=== PATIENT | male | born 1955 | race African-American/Black ===

== ENCOUNTER 2019-01-31 05:42 | Inpatient (IN) ==
[2019-01-28 11:19] LABS: Basophils % 0.6 % (0.0-0.8); Eosinophils # 0.1 10*3/uL (0.0-0.87); Eosinophils % 2.2 % (0.00-10.9); Hematocrit 43.7 VOL% (42.0-52.0); Hemoglobin 14.3 GM/DL (14.0-18.0); Lymphocytes # 1.9 10*3/uL (1.4-4.0); Lymphocytes % 38.4 % (21.2-54.2); Mean Corpuscular HGB Conc 32.7 GM/DL (32-36); Mean Corpuscular Volume 82.9 FL (87-102); Mean Platelet Volume 9.4 FL (9.6-12.0); Monocytes % 7.2 % (1.7-12.7); Neutrophils % 51.6 % (38.7-73.9); Platelet Count 229 T/CUMM (130-400); Red Blood Count 5.27 MC/CUMM (3.8-5.5); Red Cell Distribution Width 14.1 % (9.3-17.3)
[2019-01-28 11:48] LABS: Albumin 3.5 G/DL (3.4-5.0); Bilirubin,Total 0.7 MG/DL (0.2-1.0); Osmolality,Calculated 277.4 MOS/KG (273-304); Total Protein 7.7 G/DL (6.4-8.3)
[2019-01-31] MEDS ORDERED: FAMOTIDINE 20 MG/2 ML VIAL IV ONE (06:00)
[2019-01-31] MEDS ORDERED: ACETAMINOPHEN 500 MG TABLET PO ONE (06:00)
[2019-01-31] MEDS ORDERED: DIAZEPAM 5 MG TABLET PO ONE (06:00)
[2019-01-31] MEDS ORDERED: SCOPOLAMINE 1.5 MG PATCH TRANSDERM ONE ×2 (06:00→07:46)
[2019-01-31] MEDS ORDERED: GABAPENTIN 400 MG CAPSULE PO ONE (06:00)
[2019-01-31] MEDS ORDERED: cefTRIAXone 1,000 MG in SYRINGE 1 EACH IV ONE (06:30)
[2019-01-31] MEDS ORDERED: FAMOTIDINE 20 MG TABLET PO ONE (07:42)
[2019-01-31] MEDS ORDERED: ACETAMINOPHEN 500 MG TABLET ONE (07:46)
[2019-01-31] MEDS ORDERED: DIAZEPAM 5 MG TABLET ONE (07:46)
[2019-01-31] MEDS ORDERED: GABAPENTIN 400 MG CAPSULE ONE (07:46)
[2019-01-31] MEDS ORDERED: cefTRIAXone 1,000 MG VIAL ONE (07:46)
[2019-01-31] MEDS ORDERED: BUPIVACAINE 0.5% 50 ML VIAL ONE (08:03)
[2019-01-31] MEDS ORDERED: LIDOCAINE 1% 5 ML VIAL ONE (08:03)
[2019-01-31] MEDS ORDERED: EPINEPHrine 1 MG/ML VIAL ONE (08:04)
[2019-01-31] MEDS ORDERED: DEXAMETHASONE 4 MG/1 ML VIAL ONE ×2 (08:04→14:17)
[2019-01-31] MEDS ORDERED: MIDAZOLAM 2 MG/2 ML VIAL ONE (08:04)
[2019-01-31] MEDS: LACTATED RINGERS 1,000 ML IV SCH ×3 (08:14→14:00)
[2019-01-31] MEDS ORDERED: INDOCYANINE GREEN 25 MG VIAL IV ONE (09:29)
[2019-01-31] MEDS ORDERED: MANNITOL 12.5 GM/50 ML VIAL IV ONE ×2 (09:43→10:48)
[2019-01-31] MEDS ORDERED: PHENYLEPHRINE DRIP 20 MG/250 ML PREMIX IV ONE (10:53)
[2019-01-31] MEDS ORDERED: PROMETHAZINE 25 MG/1 ML VIAL IM PRN (13:42)
[2019-01-31] MEDS ORDERED: HYDROmorphone 2 MG/1 ML VIAL IV PRN ×2 (13:42→14:18)
[2019-01-31] MEDS ORDERED: ONDANSETRON 4 MG/2 ML VIAL IV PRN ×2 (13:42→14:18)
[2019-01-31] MEDS ORDERED: oxyCODONE/ACETAMINOPHEN 5-325 MG TABLET PO PRN (13:45)
[2019-01-31] MEDS ORDERED: DEXTROSE 50% 25 GM/50 ML VIAL IV PRN (13:47)
[2019-01-31] MEDS ORDERED: GLUCAGON 1 MG VIAL IM PRN (13:47)
[2019-01-31] MEDS ORDERED: ONDANSETRON 4 MG/2 ML VIAL ONE (14:17)
[2019-01-31] MEDS ORDERED: GLYCOPYRROLATE 0.4 MG/2 ML VIAL ONE (14:17)
[2019-01-31] MEDS ORDERED: fentaNYL 100 MCG/2 ML VIAL ONE (14:17)
[2019-01-31] MEDS ORDERED: SEVOFLURANE 1 UNIT/15 MINUTE INH ONE (14:17)
[2019-01-31] MEDS ORDERED: PROPOFOL 200 MG/20 ML VIAL IV ONE (14:17)
[2019-01-31] MEDS ORDERED: LIDOCAINE 2% 5 ML VIAL ONE (14:17)
[2019-01-31] MEDS ORDERED: ROCURONIUM 100 MG/10 ML VIAL IV ONE (14:18)
[2019-01-31] MEDS ORDERED: PHENYLEPHRINE 1 MG/10 ML SYRINGE IV ONE (14:18)
[2019-01-31] MEDS ORDERED: NEOSTIGMINE 10 MG/10 ML VIAL ONE (14:18)
[2019-01-31] MEDS ORDERED: LACTATED RINGERS 1,000 ML IV SCH (14:30)
[2019-01-31 14:42] LABS: Apearance,Urine CLEAR (Clear); Bilirubin,Urine Negative (Negative); Blood, Urine Small mg/dL (Negative); Glucose,Urine (UA) 150 mg/dL (Negative); Hyaline Casts,Urine 1 /LPF (0-3); Ketones,Urine Negative (Negative); Mucus,Urine Occasional /LPF (Occasional); Nitrite,Urine Negative (Negative); Protein,Urine Negative; RBC,Urine 1 /HPF (0-4); Urine Color Straw (Yellow); Urine Specific Gravity 1.009 (1.001-1.035); Urine Urobilinogen < 2.0 EU/DL (0.2-1.0); WBC,Urine 1 /HPF (0-6)
[2019-01-31 14:49] LABS: Basophils % 0.1 % (0.0-0.8); Hematocrit 39.4 VOL% (42.0-52.0); Hemoglobin 13.1 GM/DL (14.0-18.0); Immature Granulocytes % 0.8 %; Immature Granulocytes Absolute 0.07 #; Lymphocytes % 11.5 % (21.2-54.2); Mean Corpuscular HGB Conc 33.2 GM/DL (32-36); Mean Corpuscular Volume 83.7 FL (87-102); Mean Platelet Volume 9.8 FL (9.6-12.0); Monocytes % 1.4 % (1.7-12.7); Neutrophils % 86.2 % (38.7-73.9); Platelet Count 206 T/CUMM (130-400); Red Blood Count 4.71 MC/CUMM (3.8-5.5); Red Cell Distribution Width 14.1 % (9.3-17.3); White Blood Count 8.8 T/CUMM (4-12)
[2019-01-31 15:13] LABS: Calcium 8.5 MG/DL (8.5-10.1); Osmolality,Calculated 283.4 MOS/KG (273-304)
[2019-01-31] MEDS: ACETAMINOPHEN 325 MG TABLET PO SCH ×2 (15:45→20:52)
[2019-01-31] MEDS: SODIUM CHLORIDE 0.9% 1,000 ML IV SCH ×2 (15:46→23:19)
[2019-01-31] MEDS ORDERED: hydrALAZINE 25 MG TABLET PO PRN (16:13)
[2019-01-31] MEDS: INSULIN REGULAR 100 UNIT/ML SUBCUT SCH ×2 (16:51→20:52)
[2019-01-31] MEDS: DOCUSATE SODIUM 100 MG CAPSULE PO SCH (20:52)
[2019-02-01] MEDS: ACETAMINOPHEN 325 MG TABLET PO SCH ×4 (02:29→21:02)
[2019-02-01] MEDS: LACTATED RINGERS 1,000 ML IV SCH (05:26)
[2019-02-01 05:59] LABS: Basophils % 0.1 % (0.0-0.8); Hematocrit 37.9 VOL% (42.0-52.0); Hemoglobin 12.5 GM/DL (14.0-18.0); Immature Granulocytes % 0.9 %; Immature Granulocytes Absolute 0.08 #; Lymphocytes # 1.5 10*3/uL (1.4-4.0); Lymphocytes % 16.2 % (21.2-54.2); Mean Corpuscular Volume 82.9 FL (87-102); Monocytes % 9.3 % (1.7-12.7); Neutrophils % 73.5 % (38.7-73.9); Platelet Count 220 T/CUMM (130-400); Red Blood Count 4.57 MC/CUMM (3.8-5.5); Red Cell Distribution Width 14.1 % (9.3-17.3); White Blood Count 9.4 T/CUMM (4-12)
[2019-02-01 06:30] LABS: Calcium 8.2 MG/DL (8.5-10.1); Osmolality,Calculated 287.8 MOS/KG (273-304)
[2019-02-01] MEDS: INSULIN REGULAR 100 UNIT/ML SUBCUT SCH ×4 (08:46→21:06)
[2019-02-01] MEDS: SIMVASTATIN 10 MG TABLET PO SCH (08:49)
[2019-02-01] MEDS: DOCUSATE SODIUM 100 MG CAPSULE PO SCH ×2 (08:49→21:02)
[2019-02-01] MEDS: SODIUM CHLORIDE 0.9% 1,000 ML IV SCH ×2 (08:51→09:23)
[2019-02-01] MEDS: INSULIN GLARGINE 100 UNIT/ML SUBCUT SCH (09:25)
[2019-02-01] MEDS ORDERED: BISACODYL 10 MG SUPP RECTAL ONE (10:10)
[2019-02-01] MEDS: POLYETHYLENE GLYCOL POWDER 17 GM PACK PO PRN (21:02)
[2019-02-02] MEDS: ACETAMINOPHEN 325 MG TABLET PO SCH ×4 (02:03→20:34)
[2019-02-02 03:56] LABS: Basophils % 0.1 % (0.0-0.8); Eosinophils % 0.1 % (0.00-10.9); Hematocrit 39.5 VOL% (42.0-52.0); Hemoglobin 13.4 GM/DL (14.0-18.0); Immature Granulocytes % 0.2 %; Immature Granulocytes Absolute 0.02 #; Lymphocytes # 1.1 10*3/uL (1.4-4.0); Lymphocytes % 12.3 % (21.2-54.2); Mean Corpuscular HGB Conc 33.9 GM/DL (32-36); Mean Corpuscular Volume 82.3 FL (87-102); Mean Platelet Volume 10.4 FL (9.6-12.0); Monocytes % 8.4 % (1.7-12.7); Neutrophils % 78.9 % (38.7-73.9); Platelet Count 226 T/CUMM (130-400); Red Cell Distribution Width 13.9 % (9.3-17.3); White Blood Count 8.6 T/CUMM (4-12)
[2019-02-02 04:29] LABS: Calcium 8.6 MG/DL (8.5-10.1); Osmolality,Calculated 279.4 MOS/KG (273-304)
[2019-02-02] MEDS: LACTATED RINGERS 1,000 ML IV SCH (05:27)
[2019-02-02] MEDS: INSULIN REGULAR 100 UNIT/ML SUBCUT SCH ×4 (08:09→21:18)
[2019-02-02] MEDS: POLYETHYLENE GLYCOL POWDER 17 GM PACK PO PRN (08:48)
[2019-02-02] MEDS: INSULIN GLARGINE 100 UNIT/ML SUBCUT SCH (08:48)
[2019-02-02] MEDS: DOCUSATE SODIUM 100 MG CAPSULE PO SCH ×2 (08:48→20:34)
[2019-02-02] MEDS: SIMVASTATIN 10 MG TABLET PO SCH (08:48)
[2019-02-02] MEDS ORDERED: BISACODYL 10 MG SUPP RECTAL PRN (09:45)
[2019-02-02] MEDS ORDERED: POTASSIUM CHLORIDE 20 MEQ TABLET PO ONE (13:04)
[2019-02-03] MEDS: ACETAMINOPHEN 325 MG TABLET PO SCH ×2 (02:28→09:16)
[2019-02-03] MEDS: LACTATED RINGERS 1,000 ML IV SCH (05:10)
[2019-02-03 06:01] LABS: Calcium 8.8 MG/DL (8.5-10.1); Osmolality,Calculated 280.3 MOS/KG (273-304)
[2019-02-03 07:28] VITALS: BP 135/87
[2019-02-03] MEDS: INSULIN REGULAR 100 UNIT/ML SUBCUT SCH (09:03)
[2019-02-03] MEDS: DOCUSATE SODIUM 100 MG CAPSULE PO SCH (09:17)
[2019-02-03] MEDS: INSULIN GLARGINE 100 UNIT/ML SUBCUT SCH (09:18)
[2019-02-03] MEDS ORDERED: SIMVASTATIN 10 MG TABLET PO SCH (21:00)
== END 2019-02-03 10:50 | disposition home or self-care (01) | DRG 658 ==
LOC: N.OR 05:42 → N.SDSINP 05:43 → N.5E 13:42
PROVIDERS: ADMIT Surgery; ATTEND Surgery